=== PATIENT | female | born 1995 | race African-American/Black ===

== ENCOUNTER 2016-12-26 10:11 | Emergency (ER) | payer OTHER ==
[~2016-12-26] VITALS: Ht 167.6 cm; Wt 109.0 kg
[2016-12-26 10:12] VITALS: BP 128/70; PULSE 82; RESP 20; TEMP 97.6; O2SAT 99
[2016-12-26] MEDS ORDERED: CEPH-460 PO (10:25)
[2016-12-26] MEDS ORDERED: IBUP800T23 PO (10:25)
[2016-12-26] MEDS ORDERED: BACT800T5 PO (10:25)
--- NOTE | 2016-12-26 10:26 | PD ---
HPI Chief Complaint: Lump, Cyst, Hernia Time Seen by Provider: 10:24 Travel History International Travel<30 days: No Contact w/Intl Traveler<30days: No Traveled to known affect area: No History of Present Illness HPI 21-year-old female presents to the emergency department with complaint of an abscess to her posterior left thigh since Thursday. Reports poking it last night and draining it with a good amount of purulent drainage. Denies fever, chills, nausea, vomiting. Has not taken any medications or tried any treatments to be her symptoms. Allergies to codeine. Has no other medical complaints. No other modifying factors or associated signs and symptoms. PFSH Past Medical History ?: Not LMP: NOVEMBER 2016 Social History Tobacco Use: No Allergies-Medications Reported Meds & Prescriptions Reported Meds & Active Scripts Active Ibuprofen 800 Mg Tab 800 Mg PO Q6HR PRN Keflex (Cephalexin) 500 Mg Cap 500 Mg PO Q6H 10 Days Bactrim DS (Sulfamethoxazole-Trimethoprim) 800-160 Mg Tab 1 Tab PO BID 10 Days Review of Systems Except as stated in HPI: all other systems reviewed are Neg Physical Exam Narrative GENERAL: Well-nourished, well-developed female patient, in no acute distress; afebrile, nontoxic-appearing SKIN: There is an indurated area to the posterior left thigh which measures about 2 cm in diameter. It is nonfluctuant and there is pointing and minimal amount of purulent drainage. There is a zone of inflammation around it but no lymphangitis. HEAD: Atraumatic. Normocephalic. EYES: Pupils equal and round. No scleral icterus. No injection or drainage. ENT: Mucosa pink and moist. Airway patent. NECK: Trachea midline. CARDIOVASCULAR: Regular rate. RESPIRATORY: No accessory muscle use. GASTROINTESTINAL: Obese. MUSCULOSKELETAL: No obvious deformities. No clubbing. No cyanosis. No edema. NEUROLOGICAL: Awake and alert. Oriented 3. No obvious cranial nerve deficits. Motor grossly within normal limits. Normal speech. PSYCHIATRIC: Appropriate mood and affect; insight and judgment normal. Data Data Last Documented VS Vital Signs Date Time Temp Pulse Resp B/P Pulse Ox O2 Delivery O2 Flow Rate FiO2 12/26/16 10:12 97.6 82 20 128/70 99 Room Air MDM Medical Decision Making Medical Screen Exam Complete: Yes Emergency Medical Condition: Yes Medical Record Reviewed: Yes Differential Diagnosis Abscess, cellulitis, infected insect bite Narrative Course 21-year-old female with abscess to posterior left thigh. The abscess is without fluctuance and is pointing and minimal amount of purulent drainage. The patient reports poking and draining it last night. Denies fever, chills, nausea, vomiting. Patient is afebrile and nontoxic-appearing. Wound culture pending. Allergies to codeine. Keflex, Bactrim, ibuprofen prescribed for home. Patient verbalizes understanding and agreement with treatment plan. Patient is medically cleared and stable for discharge. Discussed reasons to return to the emergency department. Instructed patient to follow up with primary care provider. Patient agrees with treatment plan. The patients vital signs are stable and the patient is stable for outpatient follow-up and treatment. Patient discharged home, stable and in no acute distress. Diagnosis Primary Impression: Abscess of left leg Referrals: Primary Care Physician Patient Instructions: Abscess (ED), Abscess Follow-up (ED), General Instructions Departure Forms: School Release, Return to School Date: December 29, 2016 Tests/Procedures Additional Instructions: Complete full course of antibiotics Warm compresses to the affected area Keep area clean and dry Ibuprofen or Tylenol as directed and as needed for pain and inflammation Follow-up with primary care provider Return to emergency department immediately with worsening of symptoms Med/Other Pt SpecificInfo: Prescription(s) given Scripts Ibuprofen 800 Mg [id number] Mg PO Q6HR PRN (PAIN) #30 TAB Ref 0 Prov:Elsie Montoya 12/26/16 Cephalexin (Keflex)500 Mg [id number] Mg PO Q6H 10 Days Ref 0 Prov:Elsie Montoya 12/26/16 Sulfamethoxazole-Trimethoprim (Bactrim DS)800-160 Mg Tab1 Tab PO BID 10 Days Ref 0 Prov:Elsie Montoya 12/26/16 Disposition: 01 DISCHARGE HOME Condition: Stable Elsie Montoya Dec 26, 2016 10:26
== END 2016-12-26 10:43 | disposition home or self-care (01) ==
LOC: NEPK 10:11
DX: L02.416 Cutaneous abscess of left lower limb (principal); B95.62 Methicillin resistant Staphylococcus aureus infection as the cause of diseases classified elsewhere
CPT/HCPCS: 86403; 87070; 87186; 99283